=== PATIENT | male | born 1955 | race Caucasian/White ===

== ENCOUNTER 2019-01-08 11:18 | Day surgery (SDC) | payer MEDICARE, MEDICAID ==
[~2019-01-08] VITALS: Ht 175.3 cm; Wt 58.6 kg
[2019-01-08] VITALS (12 sets, daily range): BP systolic 91–124; BP diastolic 60–82
[2019-01-08] MEDS ORDERED: diphenhydrAMINE 25mg capsule PO ONE (11:45)
[2019-01-08] MEDS ORDERED: nitroGLYCERIN 0.4mg SUBLingual tab SL PRN (11:45)
[2019-01-08] MEDS ORDERED: LORazepam 0.5 MG tablet PO ONE (11:45)
[2019-01-08] MEDS ORDERED: normal saline 1000ml 1,000 ML IV SCH (11:45)
[2019-01-08] MEDS ORDERED: fentaNYL/PF 50MCG/1 ML 2ML syringe ONE (11:56)
[2019-01-08] MEDS ORDERED: midazolam 2 mg/2 ml injection ONE (11:56)
[2019-01-08] MEDS ORDERED: LIDOcaine 1% (10mg/ml)w/preservative injection 20ml MDV ONE (11:56)
[2019-01-08] MEDS ORDERED: iohexol 350MG/ML 100ml bottle IV ONE (11:57)
[2019-01-08] MEDS ORDERED: iohexol 350 MG/ML 50ML vial IV ONE (11:57)
[2019-01-08] MEDS ORDERED: ALB0.5UD IH (12:12)
[2019-01-08] MEDS ORDERED: ASPI-1264 PO (12:12)
[2019-01-08] MEDS ORDERED: PENT400T12 PO (12:12)
[2019-01-08] MEDS ORDERED: LISI30TA4 PO (12:12)
[2019-01-08 12:33] LABS: BASOPHILS # (AUTO) 0.1 X10'3 (0-0.2); BASOPHILS % (AUTO) 0.8 % (0-1); EOSINOPHILS # (AUTO) 0.4 X10'3 (0-0.9); EOSINOPHILS % (AUTO) 6.3 % (0-6); HEMATOCRIT 39.1 % (42.0-52.0); HEMOGLOBIN 13.3 g/dl (14.0-17.9); LYMPHOCYTES # (AUTO) 1.1 X10'3 (1.1-4.8); LYMPHOCYTES % (AUTO) 17.1 % (21-51); MEAN CORPUSCULAR HEMOGLOBIN 32.5 PG (27.0-31.0); MEAN CORPUSCULAR VOLUME 95.5 FL (78-98); MEAN PLATELET VOLUME 7.2 FL (7.4-10.4); MONOCYTES # (AUTO) 0.6 X10'3 (0-0.9); MONOCYTES % (AUTO) 8.9 % (2-12); NEUTROPHILS # (AUTO) 4.2 X10'3 (1.8-7.7); NEUTROPHILS % (AUTO) 66.9 % (42-75); PLATELET COUNT 354 X10'3 (140-440); RED BLOOD COUNT 4.09 X10'6 (4.70-6.10); RED CELL DISTRIBUTION WIDTH 13.5 % (11.5-14.5); WHITE BLOOD COUNT 6.3 X10'3 (4.5-11.0)
[2019-01-08 12:43] LABS: ALBUMIN 3.4 G/DL (3.4-5.0); ANION GAP 6 (8-16); BLOOD UREA NITROGEN 20 MG/DL (7-18); BUN/CREATININE RATIO 19.8 (5.4-32.0); CALCIUM 8.7 MG/DL (8.5-10.1); CHLORIDE 103 MMOL/L (99-107); CREATININE 1.01 MG/DL (0.60-1.10); GLUCOSE 78 MG/DL (70-104); POTASSIUM 4.3 MMOL/L (3.5-5.1); SODIUM 138 MMOL/L (135-145); TOTAL CARBON DIOXIDE 29.1 MMOL/L (24-32); eGFR 75 ML/MIN
[2019-01-08 12:45] LABS: PARTIAL THROMBOPLASTIN TIME 28 SECONDS (22-32)
[2019-01-08] MEDS ORDERED: ondansetron/PF 4mg/2ml inj IV PRN (13:30)
[2019-01-08] MEDS ORDERED: OXAZEpam 15mg capsule PO PRN (13:30)
[2019-01-08] MEDS ORDERED: proCHLORperazine 10 MG/2 ml inj IV PRN (13:30)
[2019-01-08] MEDS ORDERED: HYDROcodone/acetaminophen 5mg/325mg tablet PO PRN (13:35)
[2019-01-08] MEDS ORDERED: HYDROcodone/acetaminophen 10/325mg tab PO PRN (13:35)
--- NOTE | 2019-01-08 15:00 | NUR ---
released pressure from femstop x2 minutes per orders with no changes to site-clear with no bruising/swelling/firmness/drainage-returned pressure via bulb pump to 60 and clamped-pt slept through intervention
--- NOTE | 2019-01-08 17:00 | NUR ---
released pressure from femstop X2 minutes-no changes to site-remained CDI-no bruising/swelling-replaced pressure to 65 via bulb
--- NOTE | 2019-01-08 18:23 | NUR ---
1800-released pressure from femstop and left device on patient deflated-no changes noted to the site
== END 2019-01-08 19:12 | disposition home or self-care (01) ==
LOC: SSTAY O 11:18
PROVIDERS: ATTEND Internal Medicine Cardiovascular Disease
DX: I25.10 Atherosclerotic heart disease of native coronary artery without angina pectoris (principal); F31.9 Bipolar disorder, unspecified; G40.909 Epilepsy, unspecified, not intractable, without status epilepticus; I10 Essential (primary) hypertension; J44.9 Chronic obstructive pulmonary disease, unspecified; Z72.89 Other problems related to lifestyle; Z88.6 Allergy status to analgesic agent; Z79.899 Other long term (current) drug therapy
CPT/HCPCS: 36415; 71046; 80048; 85025; 85610; 85730; 93458; 99152; 99153; A6257; J1644; J2001; J2250; J3010; J7030; Q0163; Q9967; A4620; C1760; C1769

== ENCOUNTER 2019-03-28 11:54 | Outpatient (CLI) | payer MEDICARE, MEDICAID ==
[~2019-03-28] VITALS: Ht 172.7 cm; Wt 58.1 kg
[~2019-03-28 11:54] MED LIST: ALB0.5UD IH; ASPI-1264 PO; LISI30TA4 PO; PENT400T17 PO
[2019-03-28] MEDS ORDERED: NITR0.4T51 PO (12:21)
[2019-03-28 13:14] LABS: BASOPHILS % (AUTO) 0.6 % (0-1); EOSINOPHILS # (AUTO) 0.2 X10'3 (0-0.9); EOSINOPHILS % (AUTO) 2.8 % (0-6); LYMPHOCYTES # (AUTO) 1.3 X10'3 (1.1-4.8); LYMPHOCYTES % (AUTO) 18.7 % (21-51); MEAN CORPUSCULAR HGB CONC 33.7 g/dL (33.0-36.5); MEAN CORPUSCULAR VOLUME 97.7 FL (78-98); MEAN PLATELET VOLUME 7.5 FL (7.4-10.4); MONOCYTES # (AUTO) 0.4 X10'3 (0-0.9); MONOCYTES % (AUTO) 6.2 % (2-12); NEUTROPHILS # (AUTO) 4.8 X10'3 (1.8-7.7); NEUTROPHILS % (AUTO) 71.7 % (42-75); PRE OP HEMATOCRIT 44.3 % (42.0-52.0); PRE OP PLATELET COUNT 383 X10'3 (140-440); RED BLOOD COUNT 4.54 X10'6 (4.70-6.10); RED CELL DISTRIBUTION WIDTH 14.3 % (11.5-14.5)
[2019-03-28 13:14] LABS: CLARITY,URINE CLEAR (Clear); COLOR,URINE YELLOW (Yellow); GLUCOSE, URINE NEGATIVE (Neg); KETONES,URINE NEGATIVE (Neg); LEUKOCYTE ESTERASE ,URINE NEGATIVE (Neg); NITRITES, URINE NEGATIVE (Neg); OCCULT BLOOD,URINE NEGATIVE (Neg); PROTEIN,URINE NEGATIVE (Neg); UROBILINOGEN,URINE 0.2 E.U/dL (0.2-1.0)
[2019-03-28 13:18] LABS: UA COLLECTION TYPE CLN CATCH MIDSTREAM
[2019-03-28 13:27] LABS: ALBUMIN 3.9 G/DL (3.4-5.0); ALKALINE PHOSPHATASE 46 IU/L (46-116); BLOOD UREA NITROGEN 40 MG/DL (7-18); BUN/CREATININE RATIO 23.1 (5.4-32.0); CALCIUM 9.1 MG/DL (8.5-10.1); CHLORIDE 102 MMOL/L (99-107); CREATININE 1.73 MG/DL (0.60-1.10); PRE OP ALT 27 U/L (30-65); PRE OP ANION GAP 9 (8-16); PRE OP AST 19 U/L (10-37); PRE OP BILIRUB, TOTAL 0.4 MG/DL (0.0-1.0); PRE OP GLUCOSE 92 MG/DL (70-104); PRE OP POTASSIUM 4.9 MMOL/L (3.4-5.1); PRE OP SODIUM 134 MMOL/L (135-145); TOTAL CARBON DIOXIDE 22.7 MMOL/L (24-32); TOTAL PROTEIN 7.7 G/DL (6.4-8.2); eGFR 40 ML/MIN
[2019-03-28 13:37] LABS: PRE OP PROTIME 9.8 SECONDS (9.0-12.0)
[2019-03-29] MEDS ORDERED: LISI40TA4 PO (10:57)
[2019-04-01] MEDS ORDERED: ringers solution, lacted 1,000 ML IV SCH (05:30)
[2019-04-01] MEDS ORDERED: cefazolin/dext.iso 2gm/100 ML IV ONE (05:30)
[2019-04-01] MEDS ORDERED: albuterol 2.5 MG/3 ML nebule NEB ONE (05:30)
[2019-04-01] MEDS ORDERED: famotidine 20mg tablet PO ONE (05:30)
== END 2019-03-28 23:59 | disposition home or self-care (01) ==
LOC: PRE-OP 11:54 → EDSTATUS 04-01 07:30
PROVIDERS: ATTEND Surgery
DX: Z01.818 Encounter for other preprocedural examination (principal); I65.22 Occlusion and stenosis of left carotid artery
CPT/HCPCS: 36415; 80053; 81003; 85025; 85610; 85730; 86885; 86900; 86901; 87081